=== PATIENT | male | born 1980 ===

== ENCOUNTER 2022-11-07 18:10 | Emergency (ER) | payer OTHER ==
[~2022-11-07] VITALS: Ht 165.1 cm; Wt 65.9 kg
[2022-11-07 18:31] VITALS: TEMP 99
[2022-11-07] MEDS ORDERED: HALOPERIDOL 5 MG TABLET PO ONE (18:45)
[2022-11-07 18:49] LABS: BASOPHILS % (AUTO) 0.7 % (0.0-2.0); EOSINOPHILS % (AUTO) 0.2 % (1.0-6.0); HEMATOCRIT 47.9 % (41-53); HEMOGLOBIN 16.1 g/dL (13.5-17.5); LYMPHOCYTES % (AUTO) 13.2 % (22.0-44.0); MEAN CORPUSCULAR HEMOGLOBIN 29.7 pg (26.0-34.0); MEAN CORPUSCULAR HGB CONC 33.6 G/dL (31.0-37.0); MEAN CORPUSCULAR VOLUME 89 fL (80-100); MONOCYTES # (AUTO) 0.6 K/uL (0.1-1.0); NEUTROPHILS # (AUTO) 6.2 K/uL (1.8-7.7); NEUTROPHILS % (AUTO) 77.9 % (40.0-70.0); PLATELET COUNT (AUTO) 209 K/uL (150-450); RED BLOOD CELL COUNT(AUTO) 5.41 MIL/uL (4.50-5.90); RED CELL DISTRIBUTION WIDTH 14.9 % (11.5-14.5)
[2022-11-07 18:51] LABS: AMPHET/METH SCREEN,URINE NEGATIVE (NEGATIVE); BARBITURATE SCREEN, URINE NEGATIVE (NEGATIVE); BENZODIAZEPINES SCREEN,URINE NEGATIVE (NEGATIVE); CANNABINOID SCREEN,URINE NEGATIVE (NEGATIVE); COCAINE SCREEN,URINE NEGATIVE (NEGATIVE); METHADONE SCREEN, URINE NEGATIVE (NEGATIVE); OPIATE SCREEN,URINE NEGATIVE (NEGATIVE); PHENCYCLIDINE SCREEN,URINE NEGATIVE (NEGATIVE)
[2022-11-07 18:57] LABS: ANION GAP 8 mmol/L (8-16); CALCIUM, TOTAL 9.3 mg/dL (8.8-10.5); CARBON DIOXIDE 29 mmol/L (22-29); CHLORIDE 99 mmol/L (98-107); GLOMERULAR FILTR. RATE CALC > 60 mL/min (>60); GLUCOSE,RANDOM 136 mg/dL (70-110); POTASSIUM 3.8 mmol/L (3.5-5.1); SODIUM SERUM 136 mmol/L (136-145)
[2022-11-07 19:03] LABS: ALANINE AMINOTRANSFERASE 72 U/L (12-78); ALBUMIN 4.3 g/dL (3.4-5.0); ALKALINE PHOSPHATASE 92 U/L (46-116); ASPARTATE AMINOTRANSFERASE 67 U/L (15-37); BILIRUBIN,TOTAL 0.6 mg/dL (0.1-1.0); TOTAL PROTEIN, SERUM 8.3 g/dL (6.4-8.2)
[2022-11-07 20:15] VITALS: BP 147/82; PULSE 90; RESP 19
== END 2022-11-07 21:31 | disposition home or self-care (01) ==
LOC: EMS 18:10
DX: F20.9 Schizophrenia, unspecified (principal); I48.91 Unspecified atrial fibrillation; F41.9 Anxiety disorder, unspecified; J45.909 Unspecified asthma, uncomplicated; I10 Essential (primary) hypertension
CPT/HCPCS: 99284; 80053; 85025; 36415; 80307; G0480

== ENCOUNTER 2022-11-07 22:26 | Inpatient (IN) | payer MEDICAID, OTHER ==
[~2022-11-07] VITALS: Ht 165.1 cm; Wt 63.5 kg
[2022-11-07] MEDS ORDERED: LORazepam 2 MG/ML VIAL IM ONE (22:30)
[2022-11-07] MEDS ORDERED: HALOPERIDOL LACTATE 5 MG/ML VIAL IM ONE (22:30)
[2022-11-07] MEDS ORDERED: DiphenhydrAMINE HCL 50 MG/ML VIAL IM ONE (22:30)
[2022-11-07] MEDS ORDERED: LORazepam 2 MG TABLET PO PRN (23:45)
[2022-11-07] MEDS ORDERED: HALOPERIDOL 5 MG TABLET PO PRN (23:45)
[2022-11-07] MEDS ORDERED: ZOLPIDEM TARTRATE 10 MG TABLET PO PRN (23:45)
[2022-11-08 01:28] LABS: COVID AG,FIA SOURCE NASOPHARYNGEAL
[2022-11-08 04:22] VITALS: BP 134/67; PULSE 94; RESP 18; TEMP 98.2; O2SAT 98
[2022-11-08 08:45] VITALS: BP 124/89; PULSE 100; RESP 18; TEMP 97.3; O2SAT 98
[2022-11-08 21:14] VITALS: BP 125/83; PULSE 114; TEMP 97.8; O2SAT 99
[2022-11-08] MEDS ORDERED: MAGNESIUM HYDROXIDE SUSPENSION 30 ML UDCUP PO PRN (21:30)
[2022-11-08] MEDS ORDERED: ONDANSETRON HCL 4 MG TABLET PO PRN (21:30)
[2022-11-08] MEDS ORDERED: PETROLATUM,WHITE 28 GM JELLY TP PRN (21:30)
[2022-11-08] MEDS ORDERED: CloNIDine HCL 0.1 MG TABLET PO PRN (21:30)
[2022-11-08] MEDS ORDERED: DOCUSATE SODIUM 100 MG CAPSULE PO PRN (21:30)
[2022-11-08] MEDS ORDERED: MAG HYDROX/AL HYDROX/SIMETH ES 30 ML SUSPENSION UDCUP PO PRN (21:30)
[2022-11-08] MEDS ORDERED: LOPERAMIDE HCL 2 MG CAPSULE PO PRN (21:30)
[2022-11-08] MEDS ORDERED: NICOTINE 14 MG/24 HOUR PATCH TD PRN (21:30)
[2022-11-08] MEDS ORDERED: GuaiFENesin/D-METHORPHAN [SUGAR-FREE] 200-20MG/10 ML SYRUP UDCUP PO PRN (21:30)
[2022-11-09 08:45] VITALS: BP 115/73; PULSE 83; RESP 18; TEMP 98; O2SAT 100
[2022-11-09 09:19] LABS: THYROID STIMULATING HORMONE 0.97 uIU/mL (0.36-3.74)
[2022-11-09 09:32] LABS: HEMOGLOBIN A1C 5.4 % (3.8-5.6)
[2022-11-09] MEDS: QUEtiapine FUMARATE 25 MG TABLET PO SCH ×2 (10:51→20:55)
[2022-11-09 21:00] VITALS: BP 125/81; PULSE 100; RESP 19; TEMP 98.2; O2SAT 97
[2022-11-10 08:17] LABS: BASOPHILS % (AUTO) 0.5 % (0.0-2.0); EOSINOPHILS % (AUTO) 1.6 % (1.0-6.0); HEMATOCRIT 42.4 % (41-53); HEMOGLOBIN 14.1 g/dL (13.5-17.5); LYMPHOCYTES # (AUTO) 1.5 K/uL (1.0-4.8); LYMPHOCYTES % (AUTO) 30.5 % (22.0-44.0); MEAN CORPUSCULAR HEMOGLOBIN 29.8 pg (26.0-34.0); MEAN CORPUSCULAR HGB CONC 33.1 G/dL (31.0-37.0); MEAN CORPUSCULAR VOLUME 90 fL (80-100); MONOCYTES # (AUTO) 0.7 K/uL (0.1-1.0); MONOCYTES % (AUTO) 13.8 % (2.0-9.0); NEUTROPHILS # (AUTO) 2.7 K/uL (1.8-7.7); NEUTROPHILS % (AUTO) 53.6 % (40.0-70.0); PLATELET COUNT (AUTO) 171 K/uL (150-450); RED BLOOD CELL COUNT(AUTO) 4.72 MIL/uL (4.50-5.90); RED CELL DISTRIBUTION WIDTH 14.9 % (11.5-14.5)
[2022-11-10 08:31] LABS: ALANINE AMINOTRANSFERASE 101 U/L (12-78); ALBUMIN 3.3 g/dL (3.4-5.0); ALKALINE PHOSPHATASE 65 U/L (46-116); ANION GAP 4 mmol/L (8-16); ASPARTATE AMINOTRANSFERASE 80 U/L (15-37); BILIRUBIN,TOTAL 0.2 mg/dL (0.1-1.0); CALCIUM, TOTAL 8.5 mg/dL (8.8-10.5); CARBON DIOXIDE 30 mmol/L (22-29); CHLORIDE 106 mmol/L (98-107); CREATININE 0.84 mg/dL (0.60-1.30); GLOMERULAR FILTR. RATE CALC > 60 mL/min (>60); GLUCOSE,RANDOM 119 mg/dL (70-110); POTASSIUM 3.9 mmol/L (3.5-5.1); SODIUM SERUM 140 mmol/L (136-145); TOTAL PROTEIN, SERUM 6.3 g/dL (6.4-8.2)
[2022-11-10] MEDS: QUEtiapine FUMARATE 25 MG TABLET PO SCH ×2 (08:33→20:04)
[2022-11-10 08:49] VITALS: BP 114/63; PULSE 84; RESP 18; TEMP 97.7; O2SAT 96
[2022-11-10 23:42] VITALS: RESP 18
[2022-11-11 08:37] VITALS: BP 137/94; PULSE 84; RESP 19; TEMP 98; O2SAT 99
[2022-11-11] MEDS: QUEtiapine FUMARATE 25 MG TABLET PO SCH ×2 (09:08→20:50)
[2022-11-11 20:20] VITALS: BP 131/80; PULSE 81; RESP 18; TEMP 98.3; O2SAT 98
[2022-11-11 20:50] VITALS: RESP 18
[2022-11-11] MEDS: ACETAMINOPHEN 325 MG TABLET PO PRN (20:50)
[2022-11-11 21:50] VITALS: RESP 18
[2022-11-12 08:55] VITALS: BP 127/88; PULSE 86; RESP 19; TEMP 98.3; O2SAT 99
[2022-11-12] MEDS: QUEtiapine FUMARATE 25 MG TABLET PO SCH ×2 (09:03→20:50)
[2022-11-12] MEDS: ALBUTEROL SULFATE HFA 90 MCG/PUFF 8 GM INHALER IH PRN (10:23)
[2022-11-12 20:47] VITALS: BP 132/91; PULSE 75; RESP 18; TEMP 97.7; O2SAT 100
[2022-11-12] MEDS: ACETAMINOPHEN 325 MG TABLET PO PRN (21:40)
[2022-11-13] MEDS: QUEtiapine FUMARATE 25 MG TABLET PO SCH (08:29)
[2022-11-13] MEDS: ALBUTEROL SULFATE HFA 90 MCG/PUFF 8 GM INHALER IH PRN (08:33)
[2022-11-13 08:38] VITALS: BP 123/78; PULSE 84; RESP 17; TEMP 97.8; O2SAT 100
[2022-11-13] MEDS ORDERED: QUET25TA PO (10:36)
[2022-11-13] MEDS ORDERED: QUET25TA36 PO (14:10)
== END 2022-11-13 14:35 | disposition home or self-care (01) | DRG 750 ==
LOC: EMS 22:26 → B3A 11-08 01:30 → B2S 11-10 19:44
PROVIDERS: ADMIT Psychiatry & Neurology Child & Adolescent Psychiatry; ATTEND Psychiatry & Neurology Child & Adolescent Psychiatry
DX: F20.0 Paranoid schizophrenia (principal); R45.851 Suicidal ideations; F10.10 Alcohol abuse, uncomplicated; F41.9 Anxiety disorder, unspecified; I10 Essential (primary) hypertension; Z20.822 Contact with and (suspected) exposure to COVID-19; G47.00 Insomnia, unspecified; I48.91 Unspecified atrial fibrillation; J45.909 Unspecified asthma, uncomplicated; K76.9 Liver disease, unspecified; Z88.6 Allergy status to analgesic agent
CPT/HCPCS: 80053; 80061; 83036; 84443; 85025; 93005; 99291; J1200; J1630; J2060; J3535